=== PATIENT | male | born 1975 | race Caucasian/White ===

== ENCOUNTER → 2024-03-27 | Outpatient (CLI) | payer OTHER ==
[~2024-03-27] MED LIST: ISOVUE-300 61% 100ML VIAL As Ordered ONE; LIDOCAINE 1% MDV 20ML VIAL As Ordered ONE; PROHANCE 279.3MG/ML 5ML VIAL As Ordered ONE
== END ==
LOC: M RAD 08:46
PROVIDERS: ATTEND Physician Assistant
DX: M25.512 Pain in left shoulder (principal); S43.402A Unspecified sprain of left shoulder joint, initial encounter; X58.XXXA Exposure to other specified factors, initial encounter; Y92.9 Unspecified place or not applicable
CPT/HCPCS: 23350; 73223; 77002; A9576; Q9967

== ENCOUNTER → 2024-10-16 | Outpatient (CLI) | payer OTHER | LOC: M PLAIMG 07:00 | PROVIDERS: ATTEND Physician Assistant | DX: R93.89 Abnormal findings on diagnostic imaging of other specified body structures (principal); R91.8 Other nonspecific abnormal finding of lung field; K76.89 Other specified diseases of liver; K57.90 Diverticulosis of intestine, part unspecified, without perforation or abscess without bleeding ==

== ENCOUNTER 2024-11-20 09:36 | Day surgery (SDC) | payer OTHER ==
[~2024-11-20] VITALS: Ht 180.3 cm; Wt 96.9 kg
[~2024-11-20 09:36] MED LIST changes: -ISOVUE-300 61% 100ML VIAL As Ordered ONE; -LIDOCAINE 1% MDV 20ML VIAL As Ordered ONE; +METH36TA6 PO; +OMEP10CASR PO; -PROHANCE 279.3MG/ML 5ML VIAL As Ordered ONE
[2024-11-20] MEDS ORDERED: LR 1,000 ML IV SCH ×2 (10:10→12:40)
[2024-11-20] MEDS ORDERED: ROCURONIUM BROMIDE 50MG/5ML VIAL As Ordered ONE (10:16)
[2024-11-20] MEDS ORDERED: ONDANSETRON 4MG 2ML VIAL As Ordered ONE (10:16)
[2024-11-20] MEDS ORDERED: propofoL 200 MG/20 ML VIAL As Ordered ONE (10:16)
[2024-11-20] MEDS ORDERED: SUGAMMADEX SODIUM 500 MG/5 ML VIAL (BRIDION) As Ordered ONE (10:16)
[2024-11-20] MEDS ORDERED: LIDOCAINE 2% 100MG/5ML SDV (FOR ANES.) As Ordered ONE (10:16)
[2024-11-20] MEDS ORDERED: MIDAZOLAM INJ 2MG/2ML VIAL As Ordered ONE (10:22)
[2024-11-20] MEDS ORDERED: fentaNYL 250 MCG/5 ML INJECTION As Ordered ONE (10:22)
[2024-11-20] MEDS: COCAINE 4% 4ML NASAL SOLUTION BTL As Ordered ONE (11:43)
[2024-11-20] MEDS ORDERED: ACETAMINOPHEN 1000MG/100ML IV BAG As Ordered ONE (11:45)
[2024-11-20] MEDS: OXYMETAZOLINE 0.05% NASAL SPRAY As Ordered ONE (12:11)
[2024-11-20] MEDS: LIDOCAINE W/EPINEPHRINE 1% 20ML VIAL As Ordered ONE (12:20)
[2024-11-20] MEDS ORDERED: oxyCODONE 5MG TAB PO PRN (12:30)
[2024-11-20] MEDS ORDERED: ONDANSETRON 4MG 2ML VIAL IV PRN (12:30)
[2024-11-20] MEDS ORDERED: fentaNYL 100 MCG/2 ML INJECTION IV PRN (12:30)
[2024-11-20] MEDS ORDERED: ANEXSIA, NORCO 7.5MG/325MG TABLET(HYDROCODONE/APAP) PO PRN (12:40)
[2024-11-20] MEDS: OXYMETAZOLINE 0.05% NASAL SPRAY STA (13:35)
[2024-11-20 14:15] VITALS: BP 131/88; TEMP 98; O2SAT 94
== END 2024-11-20 14:37 | disposition home or self-care (01) ==
LOC: M SDC 09:36
PROVIDERS: ATTEND Otolaryngology
DX: J34.2 Deviated nasal septum (principal); J34.3 Hypertrophy of nasal turbinates; K21.9 Gastro-esophageal reflux disease without esophagitis; F90.9 Attention-deficit hyperactivity disorder, unspecified type; Z79.899 Other long term (current) drug therapy
CPT/HCPCS: 30140; 30520; C9143; J0131; J1100; J2250; J2405; J3010